=== PATIENT | female | born 1970 | race Caucasian/White ===

== ENCOUNTER 2018-03-30 01:09 | Inpatient (IN) | payer BC ==
[~2018-03-30] VITALS: Ht 154.9 cm; Wt 51.9 kg
[2018-03-30] MEDS ORDERED: fentaNYL PF VIAL 100 MCG/2 ML VIAL ONE (01:24)
--- NOTE | 2018-03-30 01:44 | PHYS DOC ---
Adult General Chief Complaint Chief Complaint: LOWER BACK PAIN OR INJURY HPI HPI Patient is a 48 year old [female presents with abdominal pain and chest pain. She is having epigastric pain that radiates up into the substernal area and is described as burning and also cramping she's had nausea has not vomited yet but she feels like she needs to. The pain is not exertional it is not pleuritic she has had this pain before with dietary indiscretion and she has had a lot of sugary treats recently due to the recent holiday. Symptoms are moderate they're worsening with time she has not yet tried anything for relief except for Tums which did not work. Review of Systems Review of Systems Constitutional: Denies fever or chills [] Eyes: Denies change in visual acuity, redness, or eye pain [] Respiratory: Cardiovascular: No additional information not addressed in HPI [] Musculoskeletal: Denies back pain or joint pain [] Integument: Denies rash or skin lesions [] Neurologic: Denies headache, focal weakness or sensory changes [] Endocrine: Denies polyuria or polydipsia [] All other systems were reviewed and found to be within normal limits, except as documented in this note. Current Medications Current Medications Current Medications Medications (Trade) Dose Ordered Sig/Chikis Start Time Stop Time Status Last Admin Dose Admin Acetaminophen (Tylenol) 1,000 mg 1X ONCE 03/30/18 03:15 03/30/18 03:16 DC 03/30/18 03:14 1,000 MG Fentanyl Citrate (Fentanyl 2ml Vial) 50 mcg PRN Q2HR PRN 03/30/18 04:45 03/31/18 04:44 Info (CONTRAST GIVEN -- Rx MONITORING) 1 each PRN DAILY PRN 03/30/18 02:45 04/01/18 02:44 Iohexol (Omnipaque 300 Mg/ml) 75 ml 1X ONCE 03/30/18 02:45 03/30/18 02:46 DC 03/30/18 02:47 60 ML Morphine Sulfate (Morphine Sulfate) 4 mg 1X ONCE 03/30/18 03:45 03/30/18 03:50 DC 03/30/18 04:06 4 MG Multi-Ingredient Mouthwash/Gargle (Gi Cocktail) 20 ml 1X ONCE 03/30/18 02:30 03/30/18 02:31 DC 03/30/18 01:28 20 ML Ondansetron HCl (Zofran) 4 mg 1X ONCE 03/30/18 02:30 03/30/18 02:31 DC 03/30/18 01:28 4 MG Sodium Chloride 1,000 ml @ 100 mls/hr Q10H 03/30/18 04:45 03/31/18 04:44 03/30/18 05:01 100 MLS/HR Allergies Allergies Allergies Coded Allergies Type Severity Reaction Last Updated Verified Sulfa (Sulfonamide Antibiotics) Allergy Intermediate 03/30/18 Yes paroxetine Allergy Mild 03/30/18 Yes Physical Exam Physical Exam Constitutional: Well developed, well nourished, no acute distress, non-toxic appearance. [] HENT: Normocephalic, atraumatic, bilateral external ears normal, oropharynx moist, no oral exudates, nose normal. [] Eyes: PERRLA, EOMI, conjunctiva normal, no discharge. [] Neck: Normal range of motion, no tenderness, supple, no stridor. [] Cardiovascular:Heart rate regular rhythm, no murmur [] Lungs & Thorax: Bilateral breath sounds clear to auscultation [] Abdomen: Bowel sounds normal, soft, no tenderness, no masses, no pulsatile masses. [] Skin: Warm, dry, no erythema, no rash. [] Back: No tenderness, no CVA tenderness. [] Extremities: No tenderness, no cyanosis, no clubbing, ROM intact, no edema. [] Neurologic: Alert and oriented X 3, normal motor function, normal sensory function, no focal deficits noted. [] Psychologic: Affect normal, judgement normal, mood normal. [] Current Patient Data Vital Signs Vital Signs Date Time Temp Pulse Resp B/P (MAP) Pulse Ox O2 Delivery O2 Flow Rate FiO2 03/30/18 05:06 16 99 Room Air 03/30/18 04:30 80 166/76 (106) 03/30/18 01:20 98.2 98.2 Lab Values Laboratory Tests Test 03/30/18 01:25 03/30/18 02:00 03/30/18 04:07 Urine Collection Type Unknown Urine Color Straw Urine Clarity Turbid Urine pH 7.5 Urine Specific [place] 1.015 Urine Protein Negative mg/dL (NEG-TRACE) Urine Glucose (UA) Negative mg/dL (NEG) Urine Ketones (Stick) Negative mg/dL (NEG) Urine Blood Negative (NEG) Urine Nitrite Negative (NEG) Urine Bilirubin Negative (NEG) Urine Urobilinogen Dipstick 0.2 mg/dL (0.2 mg/dL) Urine Leukocyte Esterase Negative (NEG) Urine RBC 0 /HPF (0-2) Urine WBC 0 /HPF (0-4) Urine Squamous Epithelial Cells Few /LPF Urine Amorphous Sediment Present /HPF Urine Bacteria 0 /HPF (0-FEW) Urine Mucus Mod /LPF White Blood Count 6.9 x10^3/uL (4.0-11.0) Red Blood Count 4.43 x10^6/uL (3.50-5.40) Hemoglobin 13.6 g/dL (12.0-15.5) Hematocrit 39.3 % (36.0-47.0) Mean Corpuscular Volume 89 fL (79-100) Mean Corpuscular Hemoglobin 31 pg (25-35) Mean Corpuscular Hemoglobin Concent 35 g/dL (31-37) Red Cell Distribution Width 13.3 % (11.5-14.5) Platelet Count 264 x10^3/uL (140-400) Neutrophils (%) (Auto) 69 % (31-73) Lymphocytes (%) (Auto) 18 % (24-48) L Monocytes (%) (Auto) 11 % (0-9) H Eosinophils (%) (Auto) 1 % (0-3) Basophils (%) (Auto) 1 % (0-3) Neutrophils # (Auto) 4.8 x10^3uL (1.8-7.7) Lymphocytes # (Auto) 1.3 x10^3/uL (1.0-4.8) Monocytes # (Auto) 0.7 x10^3/uL (0.0-1.1) Eosinophils # (Auto) 0.1 x10^3/uL (0.0-0.7) Basophils # (Auto) 0.0 x10^3/uL (0.0-0.2) Sodium Level 141 mmol/L (136-145) Potassium Level 3.9 mmol/L (3.5-5.1) Chloride Level 103 mmol/L (98-107) Carbon Dioxide Level 29 mmol/L (21-32) Anion Gap 9 (6-14) Blood Urea Nitrogen 17 mg/dL (7-20) Creatinine 1.0 mg/dL (0.6-1.0) Estimated GFR (Cockcroft-Gault) 59.2 BUN/Creatinine Ratio 17 (6-20) Glucose Level 97 mg/dL (70-99) Calcium Level 9.6 mg/dL (8.5-10.1) Total Bilirubin 0.2 mg/dL (0.2-1.0) Aspartate Amino Transferase (AST) 16 U/L (15-37) Alanine Aminotransferase (ALT) 18 U/L (14-59) Alkaline Phosphatase 77 U/L (46-116) Troponin I Quantitative < 0.017 ng/mL (0.000-0.055) < 0.017 ng/mL (0.000-0.055) Total Protein 7.7 g/dL (6.4-8.2) Albumin 3.8 g/dL (3.4-5.0) Albumin/Globulin Ratio 1.0 (1.0-1.7) Lipase 151 U/L (73-393) Laboratory Tests 03/30/18 02:00 Laboratory Tests 03/30/18 02:00 EKG EKG []Normal sinus rhythm rate of 67 no STEMI normal EKG noted. Radiology/Procedures Radiology/Procedures [] Impressions: IMPRESSION: 1. Cholelithiasis. No other sonographic evidence of cholecystitis. 2. Hepatic cysts. Electronically signed by: Guanaco Morales MD (03/30/2018 4:25 AM) [facility] [place] IMPRESSION: 1. No acute abdominal or pelvic abnormality. 2. Cholelithiasis. 3. Hepatic cysts. Electronically signed by: Guanaco Morales MD (03/30/2018 3:12 AM) [facility] Course & Med Decision Making Course & Med Decision Making Pertinent Labs and Imaging studies reviewed. (See chart for details) 48-year-old female with epigastric pain as well as some substernal chest pain EKG was normal sinus rhythm no ischemia was identified. I was concerned about gallbladder disease due to her abdominal examination we perform CT scan first and then ultrasound gallstone noted but no signs of cholecystitis patient was having persistent pain despite multiple doses of narcotics second troponin was negative I spoke with Dr. tom to admit for further evaluation and workup at this time there is no definite evidence of cholecystitis other than the persistent clinical symptoms. chevy Santiago Disclaimer Dragon Disclaimer This electronic medical record was generated, in whole or in part, using a voice recognition dictation system. Departure Departure Impression: Primary Impression: Cholelithiases Disposition: ADMITTED INPATIENT Condition: STABLE Referrals: RL ADKINS MD (PCP) JULIET KIM MD Mar 30, 2018 01:44
[2018-03-30 02:06] LABS: BASO % 1 % (0-3); EOS # 0.1 x10^3/uL (0.0-0.7); EOS % 1 % (0-3); HEMATOCRIT 39.3 % (36.0-47.0); HEMOGLOBIN 13.6 g/dL (12.0-15.5); LYMPH # 1.3 x10^3/uL (1.0-4.8); LYMPH % 18 % (24-48); MEAN CORPUSCULAR HEMOGLOBIN 31 pg (25-35); MEAN CORPUSCULAR HGB CONC 35 g/dL (31-37); MEAN CORPUSCULAR VOLUME 89 fL (79-100); MONO # 0.7 x10^3/uL (0.0-1.1); MONO % 11 % (0-9); NEUT # 4.8 x10^3uL (1.8-7.7); NEUT % 69 % (31-73); PLATELET COUNT 264 x10^3/uL (140-400); RED BLOOD COUNT 4.43 x10^6/uL (3.50-5.40); RED CELL DISTRIBUTION WIDTH 13.3 % (11.5-14.5); WHITE BLOOD COUNT 6.9 x10^3/uL (4.0-11.0)
[2018-03-30 02:09] LABS: AMORPHOUS SEDIMENT,UR PRESENT /HPF; BACTERIA,URINE 0 /HPF (0-FEW); BILIRUBIN,URINE NEGATIVE (NEG); CLARITY,URINE TURBID; COLOR,URINE STRAW; NITRITE,URINE NEGATIVE (NEG); PH,URINE 7.5; PROTEIN,URINE NEGATIVE (NEG-TRACE); RBC,URINE 0 /HPF (0-2); SQUAMOUS EPITHELIAL CELL,UR FEW /LPF; UROBILINOGEN,URINE 0.2 mg/dL (0.2 mg/dL); WBC,URINE 0 /HPF (0-4)
[2018-03-30 02:10] LABS: ALBUMIN 3.8 g/dL (3.4-5.0); CALCIUM 9.6 mg/dL (8.5-10.1); GFR 59.2; POTASSIUM 3.9 mmol/L (3.5-5.1); TOTAL BILIRUBIN 0.2 mg/dL (0.2-1.0); TOTAL PROTEIN 7.7 g/dL (6.4-8.2)
[2018-03-30] MEDS ORDERED: ONDANSETRON PF 4 MG/2 ML VIAL. IV ONE (02:30)
[2018-03-30] MEDS ORDERED: fentaNYL PF VIAL 100 MCG/2 ML VIAL IV ONE ×2 (02:30→04:45)
[2018-03-30] MEDS ORDERED: LIDO:MAALOX 1:1 20 ML SINGLE DOSE. SWSW ONE (02:30)
[2018-03-30] MEDS ORDERED: CONTRAST GIVEN. MC PRN (02:45)
[2018-03-30] MEDS ORDERED: IOHEXOL 300 MG/ML 100ML VIAL. IV ONE (02:45)
[2018-03-30] MEDS ORDERED: ACETAMINOPHEN 500 MG TABLET PO ONE (03:15)
--- NOTE | 2018-03-30 03:15 | RAD ---
PQRS Compliance Statement: One or more of the following individualized dose reduction techniques were utilized for this examination: 1. Automated exposure control 2. Adjustment of the mA and/or kV according to patient size 3. Use of iterative reconstruction technique CT ABD PELV W/ IV CONTRST ONLY Clinical Indication: abd pain, nausea; eval for sbo. Comparison: None. Technique: Helical CT imaging of the abdomen and pelvis is performed after 60 cc of Omnipaque 300 IV contrast. Oral contrast not given. Findings: Lung bases are clear. Cardiac size is normal. There are 4 hepatic cysts, largest measures 4.5 cm. There is cholelithiasis. The spleen, pancreas, adrenal glands, and abdominal aorta caliber are normal. Kidneys enhance symmetrically, no hydronephrosis. Stomach unremarkable. No dilated small bowel. The appendix is normal. No colon wall thickening. There is scattered stool in the colon. No abdominal adenopathy or free fluid. Urinary bladder is normal. Uterus unremarkable. Small left adnexal cysts. No pelvic free fluid. No acute bone abnormality. IMPRESSION: 1. No acute abdominal or pelvic abnormality. 2. Cholelithiasis. 3. Hepatic cysts. Electronically signed by: Guanaco Morales MD (03/30/2018 3:12 AM) [facility]
[2018-03-30] MEDS ORDERED: MORPHINE SULFATE 4 MG/ML VIAL. IV ONE (03:45)
--- NOTE | 2018-03-30 04:28 | RAD ---
Right upper quadrant abdominal ultrasound History: RUQ PAIN Comparison: CT abdomen and pelvis with contrast, earlier same day. Technique: Transabdominal ultrasound images are obtained. Findings: Visualized pancreas is unremarkable. Liver is normal in echogenicity. There are hepatic cysts, largest measures 5.2 x 4 cm.. Portal flow is hepatopedal. Right hepatic lobe measures 13.1 cm, normal. There is cholelithiasis. No gallbladder wall thickening. Sonographic Reese sign is negative. Common bile duct caliber is normal measuring 5 mm in diameter. The right kidney measures 11.3 cm in length and is without evidence of obstruction or stone. IVC is patent. IMPRESSION: 1. Cholelithiasis. No other sonographic evidence of cholecystitis. 2. Hepatic cysts. Electronically signed by: Guanaco Morales MD (03/30/2018 4:25 AM) [facility]
[2018-03-30] MEDS ORDERED: fentaNYL PF VIAL 100 MCG/2 ML VIAL IV PRN (04:45)
--- NOTE | 2018-03-30 04:52 | RAD ---
PORTABLE CHEST 1V Clinical Indication: epigastric pain Comparison: None. Findings: The cardiomediastinal silhouette is normal. Lungs are clear. There is no pneumothorax. No pleural effusion is appreciated. No acute bone abnormality. IMPRESSION: No acute cardiopulmonary process. Electronically signed by: Guanaco Morales MD (03/30/2018 4:49 AM) [facility]
[2018-03-30] MEDS: IV NORMAL SALINE 1000ML BAG 1,000 ML IV SCH ×2 (05:01→17:10)
--- NOTE | 2018-03-30 05:53 | EKG ---
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
--- NOTE | 2018-03-30 05:53 | EKG ---
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
--- NOTE | 2018-03-30 09:07 | PDOC1 ---
History and Physical Date of Admission Date of Admission DATE: 03/30/18 TIME: 09:06 Identification/Chief Complaint Chief Complaint SEEN IN ER THIS AM, epigastric pain that radiates up into the substernal area and is described as burning and also cramping she's had nausea has not vomited . The pain is not exertional it is not pleuritic she has had this pain before with dietary indiscretion and she has had a lot of sugary treats recently due to the recent holiday. Symptoms are moderate they're worsening with time Past Medical History Cardiovascular: Hyperlipidemia Pulmonary: Bronchitis ENT: No pertinent hx Past Surgical History Past Surgical History: Appendectomy Family History Family History: High Cholestrol Social History Smoke: <1 pack per day ALCOHOL: occassional Drugs: None Current Medications Current Medications Current Medications Fentanyl Citrate (Fentanyl 2ml Vial) 50 mcg 1X ONCE IV Last administered on at 01:29; Start 03/30/18 at 02:30; Stop 03/30/18 at 02:31; Status DC Multi-Ingredient Mouthwash/Gargle (Gi Cocktail) 20 ml 1X ONCE SWSW Last administered on 03/30/18at 01:28; Start 03/30/18 at 02:30; Stop 03/30/18 at 02:31 ; Status DC Ondansetron HCl (Zofran) 4 mg 1X ONCE IV Last administered on 03/30/18at 01:28 ; Start 03/30/18 at 02:30; Stop 03/30/18 at 02:31; Status DC Fentanyl Citrate (Fentanyl 2ml Vial) 100 mcg STK-MED ONCE .ROUTE ; Start at 01:24; Stop 03/30/18 at 01:25; Status DC Iohexol (Omnipaque 300 Mg/ml) 75 ml 1X ONCE IV Last administered on 03/30/18at 02:47; Start 03/30/18 at 02:45; Stop 03/30/18 at 02:46; Status DC Info (CONTRAST GIVEN -- Rx MONITORING) 1 each PRN DAILY PRN MC SEE COMMENTS; Start 03/30/18 at 02:45; Stop 04/01/18 at 02:44 Acetaminophen (Tylenol) 1,000 mg 1X ONCE PO Last administered on 03/30/18at 03: 14; Start 03/30/18 at 03:15; Stop 03/30/18 at 03:16; Status DC Morphine Sulfate (Morphine Sulfate) 4 mg 1X ONCE IV Last administered on at 04:06; Start 03/30/18 at 03:45; Stop 03/30/18 at 03:50; Status DC Fentanyl Citrate (Fentanyl 2ml Vial) 50 mcg 1X ONCE IV ; Start 03/30/18 at 04: 45; Stop 03/30/18 at 04:46; Status DC Fentanyl Citrate (Fentanyl 2ml Vial) 50 mcg PRN Q2HR PRN IV PAIN; Start at 04:45; Stop 03/31/18 at 04:44 Sodium Chloride 1,000 ml @ 100 mls/hr Q10H IV Last administered on 03/30/18at 05:01; Start 03/30/18 at 04:45; Stop 03/31/18 at 04:44 Allergies Allergies: Coded Allergies: Sulfa (Sulfonamide Antibiotics) (Verified Allergy, Intermediate, 03/30/18) paroxetine (Verified Allergy, Mild, 03/30/18) ROS Review of System Review of Systems Review of Systems Constitutional: Denies fever or chills [] Eyes: Denies change in visual acuity, redness, or eye pain [] Respiratory: NO SOA Cardiovascular: No additional information not addressed in HPI [] Musculoskeletal: Denies back pain or joint pain [] Integument: Denies rash or skin lesions [] Neurologic: Denies headache, focal weakness or sensory changes [] Endocrine: Denies polyuria or polydipsia [] 14 PT systems were reviewed and found to be within normal limits, except as documented Hematological and Lymphatic: No: Bleeding Problems, Blood Clots, Blood Transfusions, Brusing, Night Sweats, Pallor, Swollen Lymph Nodes, Other Skin: Yes Dry Skin Physical Exam Physical Exam Physical Exam Physical Exam Constitutional: Well developed, well nourished, no acute distress, non-toxic appearance. [] HENT: Normocephalic, atraumatic, bilateral external ears normal, oropharynx moist, no oral exudates, nose normal. [] Eyes: PERRLA, EOMI, conjunctiva normal, no discharge. [] Neck: Normal range of motion, no tenderness, supple, no stridor. [] Cardiovascular:Heart rate regular rhythm, no murmur [] Lungs & Thorax: Bilateral breath sounds clear to auscultation [] Abdomen: Bowel sounds normal, soft, no tenderness, no masses, no pulsatile masses. [] Skin: Warm, dry, no erythema, no rash. [] Back: No tenderness, no CVA tenderness. [] Extremities: No tenderness, no cyanosis, no clubbing, ROM intact, no edema. [] Neurologic: Alert and oriented X 3, normal motor function, normal sensory function, no focal deficits noted. [] Psychologic: Affect normal, judgement normal, mood normal. [] General: Cooperative, No acute distress HEENT: Atraumatic, PERRLA Lungs: Clear to auscultation Heart: no rubs Cardiovascular: S1 Breasts: Not examined Abdomen: Normal bowel sounds, Soft Rectal Exam: not examined PELVIC: Examination not indicated Extremities: No cyanosis Skin: No breakdown Neuro: Cranial nerves 3-12 NL Psych/Mental Status: Mood NL Vitals Vitals Vital Signs Date Time Temp Pulse Resp B/P (MAP) Pulse Ox O2 Delivery O2 Flow Rate FiO2 03/30/18 05:06 16 99 Room Air 03/30/18 04:30 80 166/76 (106) 03/30/18 01:20 98.2 98.2 Labs Labs Laboratory Tests Test 03/30/18 01:25 03/30/18 02:00 03/30/18 04:07 Urine Collection Type Unknown Urine Color Straw Urine Clarity Turbid Urine pH 7.5 Urine Specific [place] 1.015 Urine Protein Negative mg/dL (NEG-TRACE) Urine Glucose (UA) Negative mg/dL (NEG) Urine Ketones (Stick) Negative mg/dL (NEG) Urine Blood Negative (NEG) Urine Nitrite Negative (NEG) Urine Bilirubin Negative (NEG) Urine Urobilinogen Dipstick 0.2 mg/dL (0.2 mg/dL) Urine Leukocyte Esterase Negative (NEG) Urine RBC 0 /HPF (0-2) Urine WBC 0 /HPF (0-4) Urine Squamous Epithelial Cells Few /LPF Urine Amorphous Sediment Present /HPF Urine Bacteria 0 /HPF (0-FEW) Urine Mucus Mod /LPF White Blood Count 6.9 x10^3/uL (4.0-11.0) Red Blood Count 4.43 x10^6/uL (3.50-5.40) Hemoglobin 13.6 g/dL (12.0-15.5) Hematocrit 39.3 % (36.0-47.0) Mean Corpuscular Volume 89 fL (79-100) Mean Corpuscular Hemoglobin 31 pg (25-35) Mean Corpuscular Hemoglobin Concent 35 g/dL (31-37) Red Cell Distribution Width 13.3 % (11.5-14.5) Platelet Count 264 x10^3/uL (140-400) Neutrophils (%) (Auto) 69 % (31-73) Lymphocytes (%) (Auto) 18 % (24-48) Monocytes (%) (Auto) 11 % (0-9) Eosinophils (%) (Auto) 1 % (0-3) Basophils (%) (Auto) 1 % (0-3) Neutrophils # (Auto) 4.8 x10^3uL (1.8-7.7) Lymphocytes # (Auto) 1.3 x10^3/uL (1.0-4.8) Monocytes # (Auto) 0.7 x10^3/uL (0.0-1.1) Eosinophils # (Auto) 0.1 x10^3/uL (0.0-0.7) Basophils # (Auto) 0.0 x10^3/uL (0.0-0.2) Sodium Level 141 mmol/L (136-145) Potassium Level 3.9 mmol/L (3.5-5.1) Chloride Level 103 mmol/L (98-107) Carbon Dioxide Level 29 mmol/L (21-32) Anion Gap 9 (6-14) Blood Urea Nitrogen 17 mg/dL (7-20) Creatinine 1.0 mg/dL (0.6-1.0) Estimated GFR (Cockcroft-Gault) 59.2 BUN/Creatinine Ratio 17 (6-20) Glucose Level 97 mg/dL (70-99) Calcium Level 9.6 mg/dL (8.5-10.1) Total Bilirubin 0.2 mg/dL (0.2-1.0) Aspartate Amino Transf (AST/SGOT) 16 U/L (15-37) Alanine Aminotransferase (ALT/SGPT) 18 U/L (14-59) Alkaline Phosphatase 77 U/L (46-116) Troponin I Quantitative < 0.017 ng/mL (0.000-0.055) < 0.017 ng/mL (0.000-0.055) Total Protein 7.7 g/dL (6.4-8.2) Albumin 3.8 g/dL (3.4-5.0) Albumin/Globulin Ratio 1.0 (1.0-1.7) Lipase 151 U/L (73-393) Laboratory Tests Test 03/30/18 01:25 03/30/18 02:00 03/30/18 04:07 Urine Collection Type Unknown Urine Color Straw Urine Clarity Turbid Urine pH 7.5 Urine Specific [place] 1.015 Urine Protein Negative mg/dL (NEG-TRACE) Urine Glucose (UA) Negative mg/dL (NEG) Urine Ketones (Stick) Negative mg/dL (NEG) Urine Blood Negative (NEG) Urine Nitrite Negative (NEG) Urine Bilirubin Negative (NEG) Urine Urobilinogen Dipstick 0.2 mg/dL (0.2 mg/dL) Urine Leukocyte Esterase Negative (NEG) Urine RBC 0 /HPF (0-2) Urine WBC 0 /HPF (0-4) Urine Squamous Epithelial Cells Few /LPF Urine Amorphous Sediment Present /HPF Urine Bacteria 0 /HPF (0-FEW) Urine Mucus Mod /LPF White Blood Count 6.9 x10^3/uL (4.0-11.0) Red Blood Count 4.43 x10^6/uL (3.50-5.40) Hemoglobin 13.6 g/dL (12.0-15.5) Hematocrit 39.3 % (36.0-47.0) Mean Corpuscular Volume 89 fL (79-100) Mean Corpuscular Hemoglobin 31 pg (25-35) Mean Corpuscular Hemoglobin Concent 35 g/dL (31-37) Red Cell Distribution Width 13.3 % (11.5-14.5) Platelet Count 264 x10^3/uL (140-400) Neutrophils (%) (Auto) 69 % (31-73) Lymphocytes (%) (Auto) 18 % (24-48) Monocytes (%) (Auto) 11 % (0-9) Eosinophils (%) (Auto) 1 % (0-3) Basophils (%) (Auto) 1 % (0-3) Neutrophils # (Auto) 4.8 x10^3uL (1.8-7.7) Lymphocytes # (Auto) 1.3 x10^3/uL (1.0-4.8) Monocytes # (Auto) 0.7 x10^3/uL (0.0-1.1) Eosinophils # (Auto) 0.1 x10^3/uL (0.0-0.7) Basophils # (Auto) 0.0 x10^3/uL (0.0-0.2) Sodium Level 141 mmol/L (136-145) Potassium Level 3.9 mmol/L (3.5-5.1) Chloride Level 103 mmol/L (98-107) Carbon Dioxide Level 29 mmol/L (21-32) Anion Gap 9 (6-14) Blood Urea Nitrogen 17 mg/dL (7-20) Creatinine 1.0 mg/dL (0.6-1.0) Estimated GFR (Cockcroft-Gault) 59.2 BUN/Creatinine Ratio 17 (6-20) Glucose Level 97 mg/dL (70-99) Calcium Level 9.6 mg/dL (8.5-10.1) Total Bilirubin 0.2 mg/dL (0.2-1.0) Aspartate Amino Transf (AST/SGOT) 16 U/L (15-37) Alanine Aminotransferase (ALT/SGPT) 18 U/L (14-59) Alkaline Phosphatase 77 U/L (46-116) Troponin I Quantitative < 0.017 ng/mL (0.000-0.055) < 0.017 ng/mL (0.000-0.055) Total Protein 7.7 g/dL (6.4-8.2) Albumin 3.8 g/dL (3.4-5.0) Albumin/Globulin Ratio 1.0 (1.0-1.7) Lipase 151 U/L (73-393) Images Images Radiology/Procedures Radiology/Procedures [] Impressions: IMPRESSION: 1. Cholelithiasis. No other sonographic evidence of cholecystitis. 2. Hepatic cysts. VTE Prophylaxis Ordered VTE Prophylaxis Devices: No VTE Pharmacological Prophylaxi: Yes Assessment/Plan Assessment/Plan Impression: Cholelithiases EPIGASTRIC PAIN ADMITTED GB SONO GI CONSULT IV PROTONIX SQ LOVENOX DVT PROPHYLAXIS IV FENTANYL PRN PAIN CONTROL IV FLUID SUPPORT KATHY BRADEN MD Mar 30, 2018 09:06
[2018-03-30 09:19] VITALS: BP 106/67
[2018-03-30 11:00] VITALS: BP 103/57
[2018-03-30 15:00] VITALS: BP 101/66
[2018-03-30 19:00] VITALS: BP 110/62
[2018-03-30] MEDS: ENOXAPARIN 40 MG/0.4 ML SYRINGE. SQ SCH ×2 (19:45→20:50)
[2018-03-30 22:45] VITALS: BP 122/65
[2018-03-31] MEDS: IV NORMAL SALINE 1000ML BAG 1,000 ML IV SCH (00:45)
[2018-03-31 03:00] VITALS: BP 118/82
[2018-03-31 07:20] VITALS: BP 146/83
[2018-03-31] MEDS ORDERED: PANTOPRAZOLE IV PUSH 40 MG VIAL. IVP SCH (07:30)
[2018-03-31] MEDS ORDERED: oxyCODONE/APAP 5/325 1 TAB TABLET PO PRN (09:00)
--- NOTE | 2018-03-31 09:40 | PDOC2 ---
GI CONSULT Reason For Consult: epigastric pain, cholelithiasis HPI: HPI: 48 y/o female who awoke from sleep at 10:30 p.m. on Saturday night w/ pain the right mid/upper back. Eventually radiated around to RUQ. Associated w/ nausea , no vomiting. No previous episodes. Pain has resolved and she is eating and drinking without issue. Denies reflux/heartburn. Occasional pill dysphagia - also rarely with food, bolus passes with water. No diarrhea or constipation. No hematemesis, hematochezia, or melena. Has lost weight over the past year - attributes to loss of job/stress, exercising more (running, going to the gym), and dietary changes recommended by a holistic doctor. Occasional ibuprofen use. Had an EGD 30 years ago - can't recall symptoms but was told "they were caused by stress." No previous colonoscopy. No liver, pancreas, or PUD history. Unaware of gallstones til now. Labs significant for normal WBC and LFTs. On imaging: cholelithiasis and hepatic cysts. PMH: PMH: x 2, LEEP, tubal ligation FH: Family History: No pertinent hx (denies GI cancers) Social History: Smoke: No ALCOHOL: none Drugs: None ROS: GEN: Denies fevers, chills, sweats HEENT: Denies blurred vision, sore throat CV: Denies chest pain RESP: Denies shortness of air, cough GI: Per HPI : Denies hematuria, dysuria ENDO: +weight loss NEURO: Denies confusion, dizziness MSK: Denies weakness, joint pain/swelling SKIN: Denies jaundice, pruritus Vitals: Vitals: Vital Signs Date Time Temp Pulse Resp B/P (MAP) Pulse Ox O2 Delivery O2 Flow Rate FiO2 03/31/18 07:20 98.1 77 17 146/83 (104) 96 Room Air 98.1 Labs: Labs: Please see EMR. Allergies: Coded Allergies: Sulfa (Sulfonamide Antibiotics) (Verified Allergy, Intermediate, 03/30/18) paroxetine (Verified Allergy, Mild, 03/30/18) Medications: Please see EMR. Imaging: Imaging: CXR IMPRESSION: No acute cardiopulmonary process. CT A/P IMPRESSION: 1. No acute abdominal or pelvic abnormality. 2. Cholelithiasis. 3. Hepatic cysts. Abd US IMPRESSION: 1. Cholelithiasis. No other sonographic evidence of cholecystitis. 2. Hepatic cysts. CBD 5mm. PE: GEN: NAD HEENT: Atraumatic, PERRL LUNGS: CTAB HEART: RRR ABD: NABS, S/ND/NT EXTREMITY: No edema SKIN: No rashes, no jaundice NEURO/PSYCH: A & O 3 A/P: A/P: Right back/RUQ pain, nausea - resolved Cholelithiasis Occasional dysphagia - mostly related to pills CRC screen - average risk -- Pain - now resolved, possibly related to gallstones. Surgery has not seen. Denies chronic dyspeptic symptoms. Screening colonoscopy at age 50, could consider tandem EGD if occasional dysphagia worsens/changes. JENNIFER WHITE Mar 31, 2018 09:40
[2018-03-31 10:47] VITALS: BP 107/77
--- NOTE | 2018-03-31 11:13 | PDOC3 ---
Discharge Summary Visit Information Date of Admission: Mar 30, 2018 Date of Discharge: Mar 31, 2018 Admitting Diagnosis Comment: Calculus GB stones without cystitis Hepatomegaly Brief Hospital Course Allergies Allergies Coded Allergies Type Severity Reaction Last Updated Verified Sulfa (Sulfonamide Antibiotics) Allergy Intermediate 03/30/18 Yes paroxetine Allergy Mild 03/30/18 Yes Vital Signs Vital Signs Date Time Temp Pulse Resp B/P (MAP) Pulse Ox O2 Delivery O2 Flow Rate FiO2 03/31/18 10:47 97.6 70 18 107/77 (87) 97 Room Air 97.6 Lab Results Laboratory Tests Test 03/30/18 01:25 03/30/18 02:00 03/30/18 04:07 Urine Collection Type Unknown Urine Color Straw Urine Clarity Turbid Urine pH 7.5 Urine Specific [place] 1.015 Urine Protein Negative mg/dL (NEG-TRACE) Urine Glucose (UA) Negative mg/dL (NEG) Urine Ketones (Stick) Negative mg/dL (NEG) Urine Blood Negative (NEG) Urine Nitrite Negative (NEG) Urine Bilirubin Negative (NEG) Urine Urobilinogen Dipstick 0.2 mg/dL (0.2 mg/dL) Urine Leukocyte Esterase Negative (NEG) Urine RBC 0 /HPF (0-2) Urine WBC 0 /HPF (0-4) Urine Squamous Epithelial Cells Few /LPF Urine Amorphous Sediment Present /HPF Urine Bacteria 0 /HPF (0-FEW) Urine Mucus Mod /LPF White Blood Count 6.9 x10^3/uL (4.0-11.0) Red Blood Count 4.43 x10^6/uL (3.50-5.40) Hemoglobin 13.6 g/dL (12.0-15.5) Hematocrit 39.3 % (36.0-47.0) Mean Corpuscular Volume 89 fL (79-100) Mean Corpuscular Hemoglobin 31 pg (25-35) Mean Corpuscular Hemoglobin Concent 35 g/dL (31-37) Red Cell Distribution Width 13.3 % (11.5-14.5) Platelet Count 264 x10^3/uL (140-400) Neutrophils (%) (Auto) 69 % (31-73) Lymphocytes (%) (Auto) 18 % (24-48) Monocytes (%) (Auto) 11 % (0-9) Eosinophils (%) (Auto) 1 % (0-3) Basophils (%) (Auto) 1 % (0-3) Neutrophils # (Auto) 4.8 x10^3uL (1.8-7.7) Lymphocytes # (Auto) 1.3 x10^3/uL (1.0-4.8) Monocytes # (Auto) 0.7 x10^3/uL (0.0-1.1) Eosinophils # (Auto) 0.1 x10^3/uL (0.0-0.7) Basophils # (Auto) 0.0 x10^3/uL (0.0-0.2) Sodium Level 141 mmol/L (136-145) Potassium Level 3.9 mmol/L (3.5-5.1) Chloride Level 103 mmol/L (98-107) Carbon Dioxide Level 29 mmol/L (21-32) Anion Gap 9 (6-14) Blood Urea Nitrogen 17 mg/dL (7-20) Creatinine 1.0 mg/dL (0.6-1.0) Estimated GFR (Cockcroft-Gault) 59.2 BUN/Creatinine Ratio 17 (6-20) Glucose Level 97 mg/dL (70-99) Calcium Level 9.6 mg/dL (8.5-10.1) Total Bilirubin 0.2 mg/dL (0.2-1.0) Aspartate Amino Transf (AST/SGOT) 16 U/L (15-37) Alanine Aminotransferase (ALT/SGPT) 18 U/L (14-59) Alkaline Phosphatase 77 U/L (46-116) Troponin I Quantitative < 0.017 ng/mL (0.000-0.055) < 0.017 ng/mL (0.000-0.055) Total Protein 7.7 g/dL (6.4-8.2) Albumin 3.8 g/dL (3.4-5.0) Albumin/Globulin Ratio 1.0 (1.0-1.7) Lipase 151 U/L (73-393) Brief Hospital Course Ms. Pepe is a 48 old female with no significant past medical history, admitted for acute onset epigastric pain. Differentials include GERD, nonulcer dyspepsia, PUD,. CAT scan and ultrasound shows gallstones but no signs of cystitis. Patient better after 24 hours overnight with no pain meds, tolerating a diet. I did provide her a copy of her CAT scan and ultrasound and advised her a GS follow-up and I did give a couple of names with contact info if symptoms persist then gallstones might be causing a problem in the future. Colleague has consulted GI, had no further recs except for a possible GS consult. Again patient is asymptomatic now no pain hence I did not see the need for GS consult this admission Okay to go home today with no meds needed. Advised follow-up GS if symptoms persist. Did also talk about Prevacid, Tums Mylanta see if symptoms resolve but if not, then lap cholecystectomy might be an option in the future consults: GI Proc: none Discharge Information Condition at Discharge: Improved, Stable Follow Up: Weeks (GS if symptoms get worse or persistent) Disposition/Orders: D/C to Home JO CASTELLON MD Mar 31, 2018 11:13
== END 2018-03-31 12:51 | disposition home or self-care (01) | DRG 446 ==
LOC: ER 01:09 → 5 NORTH 06:15
PROVIDERS: ADMIT Internal Medicine; ATTEND Internal Medicine
DX: K80.20 Calculus of gallbladder without cholecystitis without obstruction (principal); K76.89 Other specified diseases of liver; R13.10 Dysphagia, unspecified; E78.5 Hyperlipidemia, unspecified; J40 Bronchitis, not specified as acute or chronic; F17.210 Nicotine dependence, cigarettes, uncomplicated; Z88.2 Allergy status to sulfonamides; Z88.8 Allergy status to other drugs, medicaments and biological substances; Z90.49 Acquired absence of other specified parts of digestive tract
CPT/HCPCS: 36415; 71045; 74177; 76705; 80053; 81001; 83690; 84484; 85025; 93005; 96374; 96375; J1650; J2270; J2405; J3010; J7030; Q9967; 99285-25